=== PATIENT | female | born 1965 | race Caucasian/White ===

== ENCOUNTER 2025-03-19 10:07 | Emergency (ER) | payer OTHER, SELFPAY ==
[2025-03-19 10:14] VITALS: BP 115/64
[2025-03-19 10:34] LABS: Hematocrit 42.4 % (37.0-47.0); Hemoglobin 13.9 g/dL (12.0-16.0); Mean Corp Hgb Conc. 32.8 g/dL (33.0-37.0); Mean Corpuscular Volume 80.3 fL (81.0-99.0); Nucleated Red Blood Cells % 0 %; Platelet Count 267 10^3/uL (130-400); Red Cell Dist. Width 13.5 % (11.5-14.5)
[2025-03-19 10:48] LABS: ALT (SGPT) 18 U/L (0-35); AST (SGOT) 16 U/L (14-36); Albumin 4.3 g/dl (3.5-5.0); Alkaline Phosphatase 82 U/L (38-126); Blood Urea Nitrogen 12 mg/dl (7-17); Calcium 9.2 mg/dl (8.4-10.2); Carbon Dioxide 26 mmol/L (22-30); Chloride 106 mmol/L (98-107); Glucose 139 mg/dl (70-99); Lipase 103 U/L (23-300); Potassium 4.7 mmol/L (3.5-5.1); Sodium 138 mmol/L (135-145); Total Protein 7.2 g/dl (6.3-8.2); eGFR > 60.00
[2025-03-19 11:59] LABS: Urine Character Clear (Clear)
[2025-03-19] MEDS: ZOFRAN 4 MG IV (12:01)
[2025-03-19] MEDS: NSS 1000 IV (12:01)
[2025-03-19] MEDS: TORADOL 15 MG IV (12:01)
[2025-03-19 12:26] LABS: Urine White Cell 26-30 /HPF (0-5)
--- NOTE | 2025-03-19 12:27 | ED.GENMED ---
History of Present Illness
General
Chief Complaint: Flank Pain
Source: patient
Time Seen by Provider: 03/19/25 11:25
History of Present Illness
History of Present Illness:
60-year-old female with no significant past medical history presenting to the emergency department for evaluation after she developed a sudden onset left-sided flank pain around 7:30 AM this morning accompanied with nausea and vomiting, hot flash
and diminished p.o. intake to both solids and liquids. Patient reportedly vomited a few times while in the waiting room and notes by the time she got back into the ER room her pain had started to resolve. No known sick contacts. Denies any
fevers. Denies any urinary frequency/urgency/dysuria or hematuria. No bowel changes. Patient did take 400 mg of ibuprofen around 7:45 this morning.
Past History
Past History
ED Past Medical History: None
ED Past Surgical History: None
Social History
Tobacco: Non-smoker
Alcohol: Occasional
Drug: None
Personal:
Living: with family
Employment: Employed
Review of Systems
Review of Systems
All Other Systems: ROS reviewed and negative except as documented in HPI and ROS
Phy Exam
Physical Exam
Physical Exam:
GENERAL: Alert , in no apparent distress
EYE: clear conjunctiva b/l
HEAD: NCAT
ENT: o/p clr, mmm.
CARDIAC: Regular rate and rhythm .
LUNGS: Clear breath sounds bilaterally, no acute respiratory distress, no wheezes/rales/rhonchi
ABDOMEN: Soft, without focal tenderness, no r/g, mild left CVAT
NEUROLOGICAL: Alert and oriented
SKIN: Warm and dry, skin intact.
MUSCULOSKELETAL: well perfused.
PSYCH: Normal and appropriate interaction.
Scores
Heart Failure Risk
Heart Failure Risk Score: Not Applicable
Heart Score for Chest Pain Patients
STEMI patient?: Not applicable
Withdrawal Assessment of Alcohol
Withdrawal Assessment Completed?: Not applicable
Course
Orders/Labs/Results
Orders:
Orders
03/19/25 10:23
Complete Blood Count/With Diff Urgent
Comprehensive Metabolic Panel Urgent
Lipase Urgent
03/19/25 11:43
Urinalysis Reflex To Culture Urgent
Date Specimen was Collected: 03/19/25
Time Specimen was Collected: 10:18
Urine Microscopic Reflex Cult Urgent
Urine Culture Urgent
RAUDEL Source: U
Specimen Description:
Date Specimen was Collected: 03/19/25
Time Specimen was Collected: 10:18
03/19/25 11:50
0.9% Sodium Chloride 1000 ml [Nss] 1,000 ml IV BOLUS
Ketorolac [Toradol] 15 mg IV NOW STA
Ondansetron Injectable [Zofran] 4 mg IV NOW STA
03/19/25 11:51
CT Abd/pel Without Iv Or Oral Urgent
Comment:
Reason For Exam: left flank pain
Abnormal Lab Results
03/19/25 03/19/25
10:23 11:43
MCV 80.3 L fL
(81.0-99.0)
MCH 26.3 L pg
(27.0-31.0)
MCHC 32.8 L g/dL
(33.0-37.0)
Absolute Neuts (auto) 7.9 H 10^3/uL
(1.4-6.5)
Absolute Lymphs (auto) 0.9 L 10^3/uL
(1.2-3.4)
Neutrophils % 86.2 H %
(42.2-75.2)
Lymphocytes % 9.6 L %
(20.5-51.1)
Glucose 139 H mg/dl
(70-99)
Ur Occult Blood Reflex 1+ A
(Negative)
Leukocyte Esterase Rfl 2+ A
(Negative)
Urine RBC 7-10 A /HPF
(0-2)
Urine WBC (Reflex) 26-30 A /HPF
(0-5)
Urine Bacteria (Reflex) Few A
(Negative)
Urine Albumin (Reflex) 2+ A
(Neg - Trace)
03/19/25 10:23
03/19/25 10:23
Vital Signs
Initial and Last Documented VS:
Initial Vital Signs
Temp Pulse Resp BP Pulse Ox
98 F 70 20 115/64 98
03/19/25 10:14 03/19/25 10:14 03/19/25 10:14 03/19/25 10:14 03/19/25 10:14
Last Documented Vital Signs
Temp Pulse Resp BP Pulse Ox
98 F 70 20 115/64 98
03/19/25 10:14 03/19/25 10:14 03/19/25 10:14 03/19/25 10:14 03/19/25 12:31
MDM/Problems Addressed
Differential Diagnosis Includes:
Renal/Ureteral Colic
Kidney stone
Pyelonephritis
Diverticulitis/Colitis
Abdominal muscle strain
Back strain
MDM/Problems Addressed:
60-year-old female presenting to the ER with a sudden onset of left flank pain with nausea and vomiting earlier this morning, symptoms mildly improved at time of my exam. Hemodynamically stable and in no acute distress. I do have high degree of
suspicion for renal/ureteral colic. Will treat with Toradol, Zofran and fluids. CT scan ordered. Disposition pending.
*Radiology
Radiology exam reviewed: radiology read reviewed
*Pulse Oximetry
SaO2: 98
Oxygen Mode of Delivery: Room air
Patient hypoxic: no
*Critical Care Note
Total Time (30-74mins, 75-104mins- exclusive of procedures): Not Applicable
Patient Management
Escalation/DeEscalation of care consider admission/obs:
Patient CT scan without any acute findings. We did discuss incidental findings of the distal colonic diverticulosis but no evidence for diverticulitis. Patient's urinalysis did show 26-30 WBCs so we will treat for urinary tract infection with
Bactrim. Prescription sent to pharmacy. Encourage patient to follow-up with primary care provider and discussed return precautions.
ED Attending Note
-
Portions of this chart may have been created with voice recognition software.� Occasional wrong word or��sound alike� substitutions may have occurred due to the inherent limitations of voice recognition software.
Discharge Plan
Departure
Patient Disposition: Home (Routine Discharge)
Date of Disposition: 03/19/25
Time of Disposition: 14:20
Patient with high blood pressure during this ER visit?: No
Discharge Problem:
Urinary tract infection
Instructions: Urinary tract infection (DC)
Prescriptions:
New
sulfamethoxazole-trimethoprim [Bactrim DS] 800-160 mg tablet
1 tab PO BID 10 Days Qty: 20 0RF
Referrals:
Luigi Colon MD [Family Provider, Family Practice]
Interventions
Interventions:
*Risk Screen - Suicide Last Done: 03/19/25 10:14
*General Assessment Last Done: 03/19/25 10:14
*Neglect/Abuse Screening Last Done: 03/19/25 10:14
*ED- Fall Risk Assessment Last Done: 03/19/25 11:56
*ED COVID-19 Vaccine History Last Done: 03/19/25 11:56
*ED Influenza Vaccine History Last Done: 03/19/25 11:56
ND-Kdmcon-Uxpdemdeiw Assessment Last Done: 03/19/25 11:55
ED-Female Genitourinary Assessment Last Done: 03/19/25 11:55
Discharge Date and Time
Print Language: MAORI
== END 2025-03-19 14:40 | disposition home or self-care (01) ==
LOC: EMR 10:07
PROVIDERS: EMERGENCY PHYSICIAN Emergency Medicine; FAMILY PHYSICIAN Family Medicine
DX: N39.0 Urinary tract infection, site not specified (principal); R11.2 Nausea with vomiting, unspecified
CPT/HCPCS: 99284; 96374; 96375; 96361; 74176; 80053; 81003; 81015; 83690; 85025; 87086